=== PATIENT | male | born 1945 | race Caucasian/White ===

== ENCOUNTER 2022-02-04 20:50 | Emergency (ER) | payer MEDICARE ==
[~2022-02-04] VITALS: Ht 162.6 cm; Wt 58.9 kg
[2022-02-04 21:02] LABS: BASOPHILS % (AUTO) 0 % (0-10); EOSINOPHILS # (AUTO) 0.2 10^3/uL (0.0-0.3); EOSINOPHILS % (AUTO) 2 % (0-10); HEMATOCRIT 40 % (40-54); HEMOGLOBIN 13.3 g/dL (13.3-17.7); LYMPHOCYTES # (AUTO) 1.3 10^3/uL (1.0-4.0); LYMPHOCYTES % (AUTO) 15 % (12-44); MEAN CORPUSCULAR HEMOGLOBIN 29 pg (25-34); MEAN CORPUSCULAR HGB CONC 34 g/dL (32-36); MEAN CORPUSCULAR VOLUME 85 fL (80-99); MEAN PLATELET VOLUME 8.9 fL (9.0-12.2); MONOCYTES # (AUTO) 0.6 10^3/uL (0.0-1.0); MONOCYTES % (AUTO) 6 % (0-12); NEUTROPHILS # (AUTO) 6.9 10^3/uL (1.8-7.8); NEUTROPHILS % (AUTO) 76 % (42-75); PLATELET COUNT 309 10^3/uL (130-400)
--- NOTE | 2022-02-04 21:11 | ED GI ---
General Chief Complaint: Abdominal/GI Problems Stated Complaint: NAUSEA, VOMITING Source of Information: Patient (POR HISTORIAN/POOR MEMORY), EMS, [facility] Records History of Present Illness Date Seen by Provider: February 04, 2022 Time Seen by Provider: 20:52 Initial Comments PT ARRIV[facility] VIA [facility] PT BEGAN HAVING NAUSEA/VOMITING THIS EVENING AFTER DINNER. NUMBER OF EPISODES OF EMESIS IS UNKNONW PT HAD MACARONI AND CHEESE.FOR DINNER, PER EMS EMS GAVE ZOFRAN 4 MG AND STARTED IV FLUIDS PT STATES NAUSEA IS BETTER NOW DENIES ABDOMINAL PAIN DENIES URINARY SYMPTOMS ACCUCHECK 176 BY EMS PT HAS NOT HAD COVID OR FLU VACCINES PT IS FULL CODE PCP: WATSON MCGOVERN Allergies and Home Medications Allergies Coded Allergies: No Known Drug Allergies (Unverified , 02/04/22) Patient Home Medication List Home Medication List Reviewed: Yes Ondansetron (Ondansetron Odt) 4 Mg Tab.rapdis, 4 MG PO Q4H Prescribed by: NELSON SAWYER on 02/04/22 2241 Review of Systems Review of Systems Constitutional: no symptoms reported; No fever Respiratory: No Symptoms Reported Cardiovascular: No Symptoms Reported Gastrointestinal: See HPI; Denies Abdominal Pain; Nausea, Vomiting Genitourinary: No Symptoms Reported Musculoskeletal: no symptoms reported Skin: no symptoms reported Psychiatric/Neurological: See HPI Endocrine: No Symptoms Reported Past [id number]-[id number] Hx Patient Social History Alcohol Use?: Yes Alcohol type: Beer Alcohol Frequency: Daily Past Medical History Surgeries: No (UNKNOWN) Respiratory: No Cardiac: No Neurological: No (NO DX BUT POOR MEMORY ON EXAM) Genitourinary: Yes (PER PT) Prostate Problems Gastrointestinal: No Musculoskeletal: No Endocrine: Yes Diabetes, Non-Insulin dep HEENT: No (GLASSES) Psychosocial: Yes Depression Integumentary: No Blood Disorders: No Physical Exam Vital Signs Vital Signs - First Documented Capillary Refill : Height/Weight/BMI Height: '" Weight: lbs. oz. kg; BMI Method: General Appearance: WD/WN, no apparent distress, thin, other (DOES NOT APPEAR ILL OR TO BE IN ANY DISCOMFORT OR DISTRESS. SMILING AND PLEASANT. 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, no motor/sensory deficits, alert, normal mood/affect, other (ORIENTED TO SELF, PLACE, SOMEWHAT DISORIENTED TO TIME, GROSSLY ORIENTED TO SITUTATION, BUT VERY POOR MEMORY, AND REPEATING THINGS, ) Skin: normal color, warm/dry; No rash Progress/Results/Core Measures Results/Orders Lab Results Laboratory Tests Test 02/04/22 20:56 02/04/22 21:00 02/04/22 21:19 Range/Units White Blood Count 9.0 4.3-11.0 10^3/uL Red Blood Count 4.67 4.30-5.52 10^6/uL Hemoglobin 13.3 13.3-17.7 g/dL Hematocrit 40 40-54 % Mean Corpuscular Volume 85 80-99 fL Mean Corpuscular Hemoglobin 29 25-34 pg Mean Corpuscular Hemoglobin Concent 34 32-36 g/dL Red Cell Distribution Width 13.2 10.0-14.5 % Platelet Count 309 130-400 10^3/uL Mean Platelet Volume 8.9 L 9.0-12.2 fL Immature Granulocyte % (Auto) 0 % Neutrophils (%) (Auto) 76 H 42-75 % Lymphocytes (%) (Auto) 15 12-44 % Monocytes (%) (Auto) 6 0-12 % Eosinophils (%) (Auto) 2 0-10 % Basophils (%) (Auto) 0 0-10 % Neutrophils # (Auto) 6.9 1.8-7.8 10^3/uL Lymphocytes # (Auto) 1.3 1.0-4.0 10^3/uL Monocytes # (Auto) 0.6 0.0-1.0 10^3/uL Eosinophils # (Auto) 0.2 0.0-0.3 10^3/uL Basophils # (Auto) 0.0 0.0-0.1 10^3/uL Immature Granulocyte # (Auto) 0.0 0.0-0.1 10^3/uL Sodium Level 142 135-145 MMOL/L Potassium Level 3.6 3.6-5.0 MMOL/L Chloride Level 105 98-107 MMOL/L Carbon Dioxide Level 24 21-32 MMOL/L Anion Gap 13 5-14 MMOL/L Blood Urea Nitrogen 19 H 7-18 MG/DL Creatinine 0.88 0.60-1.30 MG/DL Estimat Glomerular Filtration Rate 90 BUN/Creatinine Ratio 22 Glucose Level 169 H 70-105 MG/DL Calcium Level 9.0 8.5-10.1 MG/DL Corrected Calcium 9.2 8.5-10.1 MG/DL Magnesium Level 1.5 L 1.6-2.4 MG/DL Total Bilirubin 0.4 0.1-1.0 MG/DL Aspartate Amino Transf (AST/SGOT) 12 5-34 U/L Alanine Aminotransferase (ALT/SGPT) 15 0-55 U/L Alkaline Phosphatase 61 40-136 U/L Troponin I < 0.028 <0.028 NG/ML Total Protein 6.8 6.4-8.2 GM/DL Albumin 3.7 3.2-4.5 GM/DL Amylase Level 44 25-125 U/L Lipase 34 8-78 U/L Serum Alcohol < 10 <10 MG/DL Influenza Type A (RT-PCR) Not Detected Not Detecte Influenza Type B (RT-PCR) Not Detected Not Detecte SARS-CoV-2 RNA (RT-PCR) Not Detected Not Detecte Urine Color YELLOW Urine Clarity CLEAR Urine pH 5.0 5-9 Urine Specific [place] 1.025 H 1.016-1.022 Urine Protein NEGATIVE NEGATIVE Urine Glucose (UA) NEGATIVE NEGATIVE Urine Ketones NEGATIVE NEGATIVE Urine Nitrite NEGATIVE NEGATIVE Urine Bilirubin NEGATIVE NEGATIVE Urine Urobilinogen 0.2 < = 1.0 MG/DL Urine Leukocyte Esterase NEGATIVE NEGATIVE Urine RBC (Auto) NEGATIVE NEGATIVE Urine RBC 0-2 /HPF Urine WBC 2-5 /HPF Urine Squamous Epithelial Cells NONE /HPF Urine Renal Epithelial Cells NONE /HPF Urine Crystals NONE /LPF Urine Bacteria NEGATIVE /HPF Urine Casts NONE /LPF Urine Mucus NEGATIVE /LPF Urine Culture Indicated NO My Orders Orders - NELSON SAWYER DO Ed Iv/Invasive Line Start (02/04/22 20:55) Ekg Tracing (02/04/22 20:55) Monitor-Rhythm Ecg Trace Only (02/04/22 20:55) Alcohol (02/04/22 20:55) Amylase (02/04/22 20:55) Cbc With Automated Diff (02/04/22 20:55) Comprehensive Metabolic Panel (02/04/22 20:55) Lipase (02/04/22 20:55) Magnesium (02/04/22 20:55) Ua Culture If Indicated (02/04/22 20:55) Troponin I Yuval (02/04/22 20:55) Ed Iv/Invasive Line Start (02/04/22 20:55) Covid 19 Inhouse Test (02/04/22 20:56) Influenza A And B By Pcr (02/04/22 20:56) Isolation Central Supply Req (02/04/22 20:56) Magnesium Oxide Tablet (Mag Ox Tablet) (02/04/22 22:30) Rx-Ondansetron Po (Rx-Zofran Po) (02/04/22 22:41) Magnesium Oxide Tablet (Mag Ox Tablet) (02/04/22 22:40) Medications Given in ED Current Medications Medications Dose Ordered Sig/[place] Route Start Time Stop Time Status Last Admin Dose Admin Magnesium Oxide 1,200 mg ONCE ONCE PO 02/04/22 22:30 02/04/22 22:31 DC 02/04/22 22:37 1,200 MG Vital Signs/I&O 02/04/22 02/04/22 02/04/22 20:50 20:50 23:27 Temp 35.9 36.2 Pulse 78 82 Resp 16 16 B/P (MAP) 173/88 (116) 136/79 Pulse Ox 99 99 O2 Delivery Room Air Room Air Room Air 02/05/22 00:00 Intake Total 300 ml Balance 300 ml Progress Progress Note : Progress Note GIVEN IV FLUIDS NO COMPLAINTS OF ANY KIND FOR ENTIRE ER STAY PT STATES HE FEELS FINE NOW, AND IS WANTING TO GO BACK TO [facility]. GIVEN MAGNESIUM PILLS AND WATER, PT TOLERATED. NO VOMITING DURING ER STAY Initial ECG Impression Date: February 04, 2022 Initial ECG Impression Time: 21:05 Initial ECG Rate: 78 Initial ECG Rhythm: Normal Sinus Initial ECG Impression: Nonspecific Changes Initial ECG Comparisson: No Previous ECG Available Departure Impression Primary Impression: Nausea and vomiting Additional Impression: Hypomagnesemia Disposition: 03 XFER SNF Condition: Improved Departure-Patient Inst. Decision time for Depature: 22:40 Referrals: MERA MCGOVERN APRN Patient Instructions: Low Magnesium Level (DC), Nausea and Vomiting, Adult Add. Discharge Instructions: CLEAR LIQUIDS--WATER, BROTH, JELLO, GATORADE TOMORROW IF YOU ARE BETTER, ADD BRATS DIET TO CLEAR LIQUIDS--BANANAS, RICE, APPLESAUCE, TOAST, SALTINES FOLLOW UP WITH YOUR DR TOMORROW IF NO BETTER All discharge instructions reviewed with patient and/or family. Voiced understanding. Scripts Ondansetron (Ondansetron Odt) 4 Mg Tab.rapdis 4 MG PO Q4H for Nausea/Vomiting, #10 TAB Prov: NELSON SAWYER DO 02/04/22 NELSON SAWYER DO February 04, 2022 21:11
[2022-02-04 21:18] LABS: ALBUMIN 3.7 GM/DL (3.2-4.5); CHLORIDE 105 MMOL/L (98-107); POTASSIUM 3.6 MMOL/L (3.6-5.0); SODIUM 142 MMOL/L (135-145)
[2022-02-04 21:20] LABS: AMYLASE 44 U/L (25-125)
[2022-02-04 21:21] LABS: GLUCOSE 169 MG/DL (70-105); TOTAL PROTEIN 6.8 GM/DL (6.4-8.2)
[2022-02-04 21:22] LABS: BILIRUBIN,TOTAL 0.4 MG/DL (0.1-1.0); CARBON DIOXIDE 24 MMOL/L (21-32)
[2022-02-04 21:24] LABS: ALKALINE PHOSPHATASE 61 U/L (40-136); CREATININE SERUM 0.88 MG/DL (0.60-1.30); GFR ESTIMATED 90
[2022-02-04 21:25] LABS: BILIRUBIN,URINE NEGATIVE (NEGATIVE); CLARITY,URINE CLEAR; COLOR,URINE YELLOW; GLUCOSE, URINE (UA) NEGATIVE (NEGATIVE); KETONES,URINE NEGATIVE (NEGATIVE); LEUKOCYTE ESTERASE ,URINE NEGATIVE (NEGATIVE); NITRITE,URINE NEGATIVE (NEGATIVE); PROTEIN,URINE NEGATIVE (NEGATIVE)
[2022-02-04 21:25] LABS: BUN/CREATININE RATIO 22
[2022-02-04 21:27] LABS: ALANINE AMINOTRANSFERASE 15 U/L (0-55); MAGNESIUM 1.5 MG/DL (1.6-2.4)
[2022-02-04 21:28] LABS: LIPASE 34 U/L (8-78)
[2022-02-04 21:33] LABS: BACTERIA,URINE NEGATIVE /HPF; RBC,URINE 0-2 /HPF
[2022-02-04] MEDS ORDERED: MAGNESIUM OXIDE (MAG-OX)400 MG TAB PO ONE (22:30)
[2022-02-04] MEDS ORDERED: MAGNESIUM OXIDE (MAG-OX)400 MG TAB ONE (22:40)
[2022-02-04] MEDS ORDERED: ONDA4TAB11 PO (22:41)
[2022-02-04] MEDS ORDERED: RX-ONDANSETRON 4 MG ODT (ZOFRAN) PPK #4 PO STA (22:41)
[2022-02-04 23:27] VITALS: BP 136/79
== END 2022-02-04 23:27 ==
LOC: EDUNIT# 20:52 → ER 20:54
DX: R11.2 Nausea with vomiting, unspecified (principal); E83.42 Hypomagnesemia; Z20.822 Contact with and (suspected) exposure to COVID-19
CPT/HCPCS: 80053; 81000; 82150; 83690; 83735; 84484; 85025; 87636; 93005; 93041; 99284; G0480; 36415; 80320